=== PATIENT | female | born 1990 | race African-American/Black ===

== ENCOUNTER 2020-07-01 11:47 | Emergency (ER) | payer OTHER, SELFPAY ==
[2020-07-01] MEDS ORDERED: Ketorolac Tromethamine 30 MG/ML VIAL ONE (12:51)
== END 2020-07-01 13:15 | disposition home or self-care (01) ==
LOC: ERS 11:47
DX: M54.5 Low back pain (principal); F17.210 Nicotine dependence, cigarettes, uncomplicated; V89.2XXA Person injured in unspecified motor-vehicle accident, traffic, initial encounter
CPT/HCPCS: 96372; 99283; J1885

== ENCOUNTER 2020-08-26 02:47 | Emergency (ER) | payer OTHER, SELFPAY | END 2020-08-26 05:50 | disposition home or self-care (01) | LOC: ERS 02:47 | DX: S13.4XXA Sprain of ligaments of cervical spine, initial encounter (principal); R51.9 Headache, unspecified; M25.50 Pain in unspecified joint; M79.10 Myalgia, unspecified site; R41.82 Altered mental status, unspecified; F17.210 Nicotine dependence, cigarettes, uncomplicated; V49.9XXA Car occupant (driver) (passenger) injured in unspecified traffic accident, initial encounter | CPT/HCPCS: 70450; 72125 ==